=== PATIENT | male | born 1955 | race Caucasian/White ===

== ENCOUNTER 2017-08-24 19:06 | Emergency (ER) | payer OTHER ==
[2017-08-24 19:26] VITALS: BP 152/81; PULSE 81; RESP 18; TEMP 98.8; O2SAT 97
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
[2017-08-24] MEDS ORDERED: LOVA10TA PO (20:30)
[2017-08-24] MEDS ORDERED: ENAL5TAB PO (20:30)
[2017-08-24] MEDS ORDERED: METF500T PO (20:30)
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
== END 2017-08-24 23:05 | disposition home or self-care (01) ==
LOC: NEPD 19:06
DX: S16.1XXA Strain of muscle, fascia and tendon at neck level, initial encounter (principal); E11.9 Type 2 diabetes mellitus without complications; I10 Essential (primary) hypertension; V43.52XA Car driver injured in collision with other type car in traffic accident, initial encounter
CPT/HCPCS: 72040; 99283